=== PATIENT | female | born 1985 | race Two or more races ===

== ENCOUNTER 2025-03-05 14:05 | Observation (INO) | payer SELFPAY ==
[2025-03-05 14:52] LABS: Urine Protein, UAD TRACE (Negative)
[2025-03-05 15:02] LABS: Amphetamine Screen, Urine Neg (NEGATIVE); Barbiturate Scree,Urine Neg (NEGATIVE); Benzodiazephine Screen, Urine Neg (NEGATIVE); Cannabinoid Screen, Urine Pos (NEGATIVE); Cocaine Screen, Urine Neg (NEGATIVE); Opiate Scree,Urine Neg (NEGATIVE); Phencyclidine Screen, Urine Neg (NEGATIVE)
--- NOTE | 2025-03-05 15:24 | DVHHP2 ---
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 PT HAS HAD 5 CS AND IS AMA.SONO REVEALS NO ACCRETA,VX ,EFW 6-8 Past Medical History Cardiac: No pertinent Hx Pulmonary: No pertinent Hx Central Nervous System: No pertinent Hx GI: No pertinent Hx Hemotology/Oncology: No pertinent Hx Hepatobiliary: No pertinent Hx Psychiatric: No pertinent Hx Musculoskeletal: No pertinent Hx Rheumotologic: No pertinent Hx Infectious Disease: No peritnent Hx ENT: No pertinent Hx Renal/: No pertinent Hx Endocrine: No pertinent Hx, IDDM Dermatology: No pertinent Hx Past Surgical History: No pertinent Hx, OB History OB History Care: None Obstetrical Complications: None Medical Complications: None Family & Social History Family/Social History Blood Type: Unknown Rubella: unknown RPR/VDRL: Unknown GBS Status: Unknown HBsAG: Unknown Review of Systems Constitutional: No symptom reported Ears, Nose, & Throat: No symptom reported Eyes: No symptom reported Pulmonary/Respiratory: No symptom reported Cardiovascular: No symptom reported Gastrointestinal: No symptom reported Genitourinary: No symptom reported Musculoskeletal: No symptom reported Skin: No symptom reported Psychiatric: No symptom reported Endocrine: No symptom reported Hemotologic/Lymphatic: No symptom reported OB Admission Exam Physical Exam HEENT: TMs Normal, Fontanelles Normal, Nasal Mucosa Normal, Eyes non-injected, Oropharynx Normal, PERRLA, Moist Membranes, EOMI Heart: Rhythm Normal Lungs: Clear Abdomen: Non tender Extremities: Normal Reflexes: Normal Cervical Dilatation: 1cm Effacement: 25% Station: -3 Membranes: Intact Heart Rate: 130's Accelerations: Accelerations Present Decelerations: No Decelerations Short Term Variability: Present Dust Collector Operator Variability: Average (6-25) Contractions on Admission: < 5 Minutes Apart Intensity: Mild OB Plan Plan Admitting Diagnosis: IUP AT 36WKS WITH NO CARE,AMA,CSX5 THC POSITIVE,DM2 Other Plan: TRANSFER TO [facility],DR ZHENG ACCEPTED TRANSFER Visit Coding OBGYN Date of Service: Mar 05, 2025 Billing Provider: JACQUELINE PARK DO DIRECTOR FUNDS DEVELOPMENT Common Visit Codes: 22287-WMOYBNP OBS CARE (HIGH) DIRECTOR FUNDS DEVELOPMENT Consultation Codes: 61521-S/U INPATIENT CONSULT (HIGH) DIRECTOR FUNDS DEVELOPMENT Procedure Codes: 00653-46- NON-STRESS TEST JACQUELINE PARK DO Mar 05, 2025 15:24
[2025-03-05 15:27] LABS: Hematocrit 31.9 % (36.0-46.0); Hemoglobin 11.1 g/dL (12.2-16.2); Mean Corpuscular Hemoglobin 28.8 pg (28.0-32.0); Mean Corpuscular Volume 82.4 fL (80.0-100.0); Nucleated Red Blood Cells % 0.0 %
[2025-03-05 15:43] LABS: Albumin 4.0 g/dL (3.2-4.8); Anion Gap 10 (5-15); BUN/Creatinine Ratio 18.3 (10.0-20.0); Blood Urea Nitrogen 11 mg/dL (9-23); Calcium 10.3 mg/dL (8.7-10.4); Carbon Dioxide 22 mmol/L (20-31); Chloride 102 mmol/L (98-107); Potassium 4.2 mmol/L (3.5-5.1); Total Protein 6.5 g/dL (5.7-8.2)
[2025-03-05 15:44] LABS: Bilirubin, Total 0.3 mg/dL (0.2-1.0); INR 0.92 (0.9-1.15); Partial Thromboplastin Time 21.9 SEC (24.5-34.5); Prothrombin Time 9.8 sec (9.3-11.8)
[2025-03-05 15:46] LABS: Alanine Aminotransferase < 9 U/L (7-40); Alkaline Phosphatase 137 U/L (46-116); Glucose 263 mg/dL (74-106); Sodium 134 mmol/L (136-145)
--- NOTE | 2025-03-05 15:52 | DVH ---
EXAM: US OB ULTRASOUND COMP GTR 14 WKS CLINICAL HISTORY: limited care possible accreta COMPARISON: None TECHNIQUE: Grayscale, color-flow Doppler, and spectral Doppler ultrasound of the pelvis is performed by transabdominal technique. Findings: Single live intrauterine in vertex presentation with heart rate of 135 bpm. Cervical os appears closed. Placenta is anterior in location without evidence of previa or abruption. Evaluation of anatomy including the cranium, thorax, four-chamber heart, stomach, kidneys, blad jim, spine, three-vessel cord and cord insertion appear grossly unremarkable. Estimated gestational age 35 weeks 2 days based on parameters which include biparietal diameter 8.5 cm, head circumference 30.5 cm, abdominal circumference 34.4 cm, and femur length 6.[address] ratios within normal limits. Estimated weight 2951 g (6 lb 8 oz ). Impression: 1. Single live intrauterine in vertex presentation with heart rate of 135 bpm. 2. Estimated gestational age 35 weeks 2 days with estimated date of confinement 04/07/2025.
--- NOTE | 2025-03-05 16:06 | DVH ---
BIOPHYSICAL PROFILE HISTORY: No care, high risk, possible accreta TECHNIQUE: Multiple transabdominal real-time grayscale sonographic images through the gravid uterus of the fetus with duplex Doppler color flow and M-mode spectral analysis FINDINGS: BIOPHYSICAL PROFILE: breathing score: 2 movement score: 2 tone score: 2 Quantitative MALIK score: 2 (MALIK: 15.7 Cm.) Total score: /8 The cervix obscured Single live fetus in vertex presentation. heart rate 135 beats per minute. Grade 2 placenta without previa or abruption Single live fetus at 36 weeks 2 days Biophysical profile score 8/8 corresponding to an KONRAD of 03/31/2025 IMPRESSION: 1. Biophysical profile score: 8/8
[2025-03-06 10:29] LABS: Hepatitis C Antibody Negative (Negative)
--- NOTE | 2025-03-07 07:04 | DVHTS ---
Transfer Summary Transfer Summary Date of Admission Mar 05, 2025 at 15:17 Date of Transfer: Mar 05, 2025 Transfer Diagnosis am,previous csx5,type 2dm,pos thc ,labor,no care Brief Hx & Hospital Course: pt is admitted for labor then transferred to [facility] . dr michele accepted the transfer Transfer to: [facility] Discharge Instructions: via air Transfer Status stable No Active Prescriptions or Reported Meds Visit Coding OBGYN Date of Service: Mar 05, 2025 Billing Provider: JACQUELINE PARK DO AMUSEMENT MACHINE MECHANIC Common Visit Codes: 56626-[id number] OBS CARE (HIGH) AMUSEMENT MACHINE MECHANIC Consultation Codes: 02855-JROOYITOC CONSULT <110MIN AMUSEMENT MACHINE MECHANIC Procedure Codes: 19364-55- NON-STRESS TEST JACQUELINE PARK DO Mar 07, 2025 07:04
--- NOTE | 2025-03-07 07:06 | DVHDS2 ---
Physician Discharge Progress N Final Diagnosis: Transfer to higher level of care for ama,previous csx5,ptl,thc pos,dm2 Operations or Procedures: Operations or Procedures nst reactive reviwed,sono Condition on Discharge: Higher Level of Care Disposition: Discharge Instructions: Diet: Consistent carbohydrate Activity: No Restrictions, As Tolerated Medications: na Follow Up Care: Specialist: to [facility] Discharge Statement: "Patient was advised to return to the ER or call 911 if any headaches, dizziness, shortness of breath, chest pain, abdominal pain, bleeding, fevers, or worsening of medical condition. Patient was counseled about treatment plan, medications, possible side effects, patientverbalized understanding. All questions were answered to the best of my ability. This discharge took greater then 30 minutes in planning, reviewing documentation, counseling the patient, and discussing with other team members." Visit Coding OBGYN Date of Service: Mar 05, 2025 Billing Provider: JACQUELINE PARK DO CHIEF I DISPATCHER Common Visit Codes: 55847-VWCMWPL OBS CARE (HIGH) CHIEF I DISPATCHER Consultation Codes: 36258-[id number] CONSULT <110MIN CHIEF I DISPATCHER Procedure Codes: 50253-97- NON-STRESS TEST JACQUELINE PARK DO Mar 07, 2025 07:06
== END 2025-03-05 16:27 | disposition home or self-care (01) ==
LOC: LDRP 14:05 → EDBD 14:05 → INTOOBSV 15:17 → OBSVTOIN 15:17 → LDRP 16:12
PROVIDERS: ADMIT Obstetrics & Gynecology; ATTEND Obstetrics & Gynecology
DX: O60.03 Preterm labor without delivery, third trimester (principal); O24.419 Gestational diabetes mellitus in pregnancy, unspecified control; O09.513 Supervision of elderly primigravida, third trimester; O09.93 Supervision of high risk pregnancy, unspecified, third trimester; Z3A.36 36 weeks gestation of pregnancy; Z79.899 Other long term (current) drug therapy; Z86.2 Personal history of diseases of the blood and blood-forming organs and certain disorders involving the immune mechanism
CPT/HCPCS: 36415; 76805; 76818; 80053; 80307; 81001; 81002; 82948; 82962; 83036; 85025; 85610; 85730; 86706; 86780; 86803; 86850; 86900; 86901; 94760; 96360; 96361; G0378; 59025; 76819